=== PATIENT | female | born 1990 | race Two or more races ===

== ENCOUNTER 2024-02-01 19:50 | Emergency (ER) | payer OTHER ==
[~2024-02-01] VITALS: Ht 154.9 cm; Wt 81.4 kg
[2024-02-01 20:01] VITALS: TEMP 98.5
[2024-02-01] MEDS ORDERED: METH4TAB3 PO (22:55)
[2024-02-01] MEDS ORDERED: FAMO20 PO (22:55)
[2024-02-01] MEDS ORDERED: DIPH25CA85 PO (22:55)
[2024-02-01] MEDS: DiphenhydrAMINE HCL 50 MG CAPSULE PO ONE (23:06)
[2024-02-01] MEDS: DEXAMETHASONE SOD PHOS 4 MG/ML 5 ML VIAL IM ONE (23:06)
[2024-02-01] MEDS: FAMOTIDINE 20 MG TABLET PO ONE (23:06)
[2024-02-01 23:17] VITALS: BP 140/78; PULSE 81; RESP 16
== END 2024-02-01 23:18 | disposition home or self-care (01) ==
LOC: EMS 19:50
DX: T63.481A Toxic effect of venom of other arthropod, accidental (unintentional), initial encounter (principal); Y92.89 Other specified places as the place of occurrence of the external cause
CPT/HCPCS: 99283; 96372; J1100